=== PATIENT | male | born 1980 | race African-American/Black ===

== ENCOUNTER 2020-09-12 12:00 | Emergency (ER) | payer OTHER, SELFPAY ==
--- NOTE | 2020-09-12 12:08 | ED.DENTAL ---
HPI - Dental/Oral General Chief complaint: Dental/Oral Stated complaint: bump on upper gums Time Seen by Provider: 09/12/20 12:10 Source: patient and RN notes reviewed Mode of arrival: ambulatory Limitations: no limitations History of Present Illness HPI Narrative: 40-year-old male presents concern for area on his gum that is swollen, sore. Reports 10 days ago he was eating trail mix when he had something poke his gum between his 2 front teeth. Reports pain is improving, however the area remains swollen. MD Complaint: tooth injury (gingival abscess) Related Data Allergies Allergy/AdvReac Type Severity Reaction Status Date / Time No Known Allergies Allergy Unverified 02/23/13 12:15 Review of Systems Review of Systems: Narrative: CONSTITUTIONAL: Denies malaise, chills, sweats, or fever. EYES: Denies visual changes, redness, or discharge. ENT: Denies rhinorrhea, congestion, sinus pain, otalgia or sore throat. Reports a tender bump on his front top gum above tooth 8 - 9 CARDIOVASCULAR: Denies chest pain, palpitations, or edema. RESPIRATORY: Denies cough or dyspnea. SKIN: Denies rash or itching. MUSCULOSKELETAL: Denies myalgia. NEUROLOGIC: Denies headache. All systems reviewed & are unremarkable except as noted in HPI and below PMFSH Comments At time of signature, agree with nursing past medical, surgical, social and family history. There is no relevant family history pertinent to the presenting complaint Exam Narrative: Exam Narrative: GENERAL: Well-appearing, well-nourished, and in no acute distress. HEAD: Normocephalic, atraumatic. EYES: PERRLA, conjunctivae clear ENT: Nares clear. Mucous membranes moist. Oropharynx without erythema or lesions. No missing teeth, broken teeth, caries. Fluctuant gingival abscess noted above tooth 8 - 9, 0.5 cm in diameter NECK: Supple. CHEST: No respiratory distress. Speaks in full sentences. HEART: Regular rate and rhythm. SKIN: Warm, dry, no rash. NEURO: Alert and oriented x3 Course Course Emergency Course: Patient is aware of diagnosis, understands and agrees to treatment plan. Anticipatory guidance given. Patient agrees to follow-up as directed and is aware of reasons to seek care at the emergency department. Portions of this record may have been created with voice recognition software Vital Signs Vital signs: Vital Signs Temperature 98.3 F 09/12/20 12:09 Pulse Rate 77 09/12/20 12:09 Respiratory Rate 16 09/12/20 12:09 Blood Pressure 121/65 09/12/20 12:09 Pulse Oximetry 99 09/12/20 12:09 Temperature 98.3 F 09/12/20 12:09 Pulse Rate 77 09/12/20 12:09 Respiratory Rate 16 09/12/20 12:09 Blood Pressure 121/65 09/12/20 12:09 Pulse Oximetry 99 09/12/20 12:09 Reviewed. MDM - Dental/Oral MDM Narrative Medical decision making narrative: Patients pain and complaint coupled with physical findings are consistant with dentalgia. There are no focal signs of space occupying lesions that are compromising to the airway; no dysphagia, odynophagia, dysphonia, or dyspnea. No uvular deviation or soft palate edema. Patient is non-toxic appearing. The floor of the mouth is soft with no signs of Tamir's Angina; no induration below mandible, no neck pain. Patient is without trismus or drooling and able to swallow secretions. Patient is felt appropriate for discharge home with dental follow up. Differential Diagnosis Differential diagnosis: Likely gingival abscess, dental abscess and aphthous ulcer Critical Care Time Critical Care Time Critical Care Time: No Discharge Plan Discharge Clinical Impression: Gingival abscess Patient Disposition: Home, Self-Care Condition: Stable Instructions: Antibiotic Form, Dental Abscess (ED) Additional Instructions: Take antibiotic as directed Avoid temperature extremes Swish with salt water 2-3 times daily for the next 2 days Gentle brushing and flossing Alternate Tylenol and ibuprofen as needed for pa
[2020-09-12 12:09] VITALS: BP 121/65; PULSE 77; RESP 16; TEMP 36.8; O2SAT 99
== END 2020-09-12 12:36 | disposition home or self-care (01) ==
PROVIDERS: Emergency Provider Nurse Practitioner
DX: K05.319 Chronic periodontitis, localized, unspecified severity (principal)
CPT/HCPCS: 99213; G0463

== ENCOUNTER 2022-05-14 13:08 | Emergency (ER) | payer SELFPAY ==
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
[2022-05-14 13:52] VITALS: BP 117/101; PULSE 89; RESP 16; TEMP 36.6
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
== END 2022-05-14 15:38 | disposition home or self-care (01) ==
PROVIDERS: Emergency Provider Nurse Practitioner
DX: S20.212A Contusion of left front wall of thorax, initial encounter (principal); Y04.8XXA Assault by other bodily force, initial encounter; F17.210 Nicotine dependence, cigarettes, uncomplicated; F12.90 Cannabis use, unspecified, uncomplicated
CPT/HCPCS: 71101; 99213; G0463